=== PATIENT | male | born 1950 | race African-American/Black ===

== ENCOUNTER 2019-08-16 08:59 | Emergency (ER) | payer OTHER ==
--- NOTE | 2019-08-16 09:46 | ER Document Report ---
ED Medical Screen (RME) - General Chief Complaint: Hip Pain Stated Complaint: RIGHT HIP PAIN Time Seen by Provider: 08/16/19 09:40 Notes: HPI: 68-year-old male with multiple medical conditions presenting for right sided pain that seems to radiate from just below the shoulder blade down through the right flank, into the right hip down to the knee. Pain seems to be worse with standing or movement. Denies trauma. Denies abdominal pain dysuria fever nausea vomiting. I have greeted and performed a rapid initial assessment of this patient. A comprehensive ED assessment and evaluation of the patient, analysis of test results and completion of the medical decision making process will be conducted by additional ED providers PHYSICAL EXAMINATION: GENERAL: Well-appearing, well-nourished and in mild acute distress. HEAD: Atraumatic, normocephalic. EYES: sclera anicteric, conjunctiva are normal. ENT: Moist mucous membranes. NECK: Normal range of motion LUNGS: Normal work of breathing, clear to auscultation HEART: 2+ radial pulses bilaterally, regular rate and rhythm ABD: limited by positioning for exam in triage. Unable to reproduce pain through the right abdomen on palpation EXTREMITIES: no pitting or edema. No cyanosis. Unable to specifically reproduce pain on palpation of the right thoracic musculature, right lumbar musculature NEUROLOGICAL: No focal neurological deficits. Moves all extremities spontaneously and on command. PSYCH: Normal mood, normal affect. SKIN: Warm, Dry, normal turgor, no rashes or lesions noted. TRAVEL OUTSIDE OF THE [place] IN LAST 30 DAYS: No - Related Data Allergies/Adverse Reactions: No Known Allergies Allergy (Verified 08/16/19 09:35) Home Medications: metformin. januvia. famotidine. levocetirizine. vitamin d2. famotidine. pravastatin. glipizide. pataday Past Medical History - Social History Chew tobacco use (# tins/day): No Frequency of alcohol use: None Drug Abuse: None Physical Exam - Vital signs Vitals: Temp Pulse Resp BP Pulse Ox 98.0 F 59 L 18 144/73 H 94 08/16/19 09:04 08/16/19 09:04 08/16/19 09:04 08/16/19 09:04 08/16/19 09:04 Course - Vital Signs Vital signs: Temp Pulse Resp BP Pulse Ox 98.0 F 59 L 18 144/73 H 94 08/16/19 09:04 08/16/19 09:04 08/16/19 09:04 08/16/19 09:04 08/16/19 09:04
[2019-08-16 10:02] LABS: ABSOLUTE EOSINOPHILS # (AUTO) 0.1 10^3/uL (0.0-0.6); ABSOLUTE LYMPHOCYTES (AUTO) 0.9 10^3/uL (0.5-4.7); ABSOLUTE MONOCYTES (AUTO) 0.5 10^3/uL (0.1-1.4); ABSOLUTE NEUT (AUTO) 2.4 10^3/uL (1.7-8.2); BASOPHILS % (AUTO) 0.6 % (0-2); EOSINOPHILS % (AUTO) 3.4 % (0-6); HEMATOCRIT 39.7 % (37.9-51.0); HEMOGLOBIN 13.9 g/dL (13.5-17.0); LYMPHOCYTES % (AUTO) 23.3 % (13-45); MEAN CORPUSCULAR HEMOGLOBIN 31.7 pg (27.0-33.4); MEAN CORPUSCULAR VOLUME 91 fl (80-97); MONOCYTES % (AUTO) 12.9 % (3-13); PLATELET COUNT 181 10^3/uL (150-450); RED BLOOD COUNT 4.39 10^6/uL (4.35-5.55); SEGMENTED NEUTROPHILS % (AUTO) 59.8 % (42-78); TOTAL CELLS COUNTED % (AUTO) 100 %
--- NOTE | 2019-08-16 10:14 | RADIOLOGY REPORT (SQ) ---
EXAM DESCRIPTION: ABDOMEN 2 VIEWS COMPLETED DATE/TIME: 08/16/2019 10:05 am REASON FOR STUDY: right flank pain COMPARISON: None. NUMBER OF VIEWS: Two views. TECHNIQUE: Supine and erect/decubitus radiographic images of the abdomen acquired. LIMITATIONS: None. FINDINGS: FREE AIR: None. No abnormal gas collections. LUNG BASES: Clear. BOWEL GAS PATTERN: Nonobstructive pattern. No dilated loops or air fluid levels. CALCIFICATIONS: No suspicious calcifications. SOFT TISSUES: No gross mass or suggestion of organomegaly. HARDWARE: None in the abdomen. BONES: No acute fracture. No worrisome bone lesions. OTHER: No other significant finding. IMPRESSION: NO RADIOGRAPHIC EVIDENCE FOR ACUTE ABDOMINAL DISEASE. TECHNICAL DOCUMENTATION: JOB ID: [id number] 2010 [employer]- All Rights Reserved Reading location - IP/workstation name: [email or web address]
--- NOTE | 2019-08-16 10:15 | RADIOLOGY REPORT (SQ) ---
EXAM DESCRIPTION: HIP RIGHT AP/LATERAL COMPLETED DATE/TIME: 08/16/2019 10:05 am REASON FOR STUDY: right flank/hip pain COMPARISON: None. NUMBER OF VIEWS: Two views. TECHNIQUE: AP pelvis and additional frog-leg view of the right hip. LIMITATIONS: None. FINDINGS: MINERALIZATION: Normal. RIGHT HIP: No fracture or dislocation. No worrisome bone lesions. No contour deformity. Mild joint space narrowing. Sclerosis and osteophytes. LEFT HIP: No fracture or dislocation. No worrisome bone lesions. Mild joint space narrowing. Scler osis and osteophytes. PUBIS AND ISCHIUM: No fracture. PELVIS: No fracture. SACRUM: No fracture or dislocation. No worrisome bone lesions. LOWER LUMBAR SPINE: No fracture or dislocation. No worrisome bone lesions. No significant disc disea se. SOFT TISSUES: No findings. OTHER: No other significant finding. IMPRESSION: DEGENERATIVE CHANGES IN THE HIPS. NO ACUTE FINDINGS. TECHNICAL DOCUMENTATION: JOB ID: [id number] 2010 [employer]- All Rights Reserved Reading location - IP/workstation name: [email or web address]
[2019-08-16 10:26] LABS: ALBUMIN 3.7 g/dL (3.5-5.0); ALKALINE PHOSPHATASE 73 U/L (38-126); ANION GAP 7 (5-19); ASPARTATE AMINO TRANSFERASE 27 U/L (17-59); BILIRUBIN,DIRECT 0.2 mg/dL (0.0-0.4); BILIRUBIN,TOTAL 0.9 mg/dL (0.2-1.3); BLOOD UREA NITROGEN 23 mg/dL (7-20); CALCIUM 9.6 mg/dL (8.4-10.2); CARBON DIOXIDE 30 mmol/L (22-30); CHLORIDE 103 mmol/L (98-107); GLUCOSE 188 mg/dL (75-110); POTASSIUM 4.3 mmol/L (3.6-5.0); TOTAL PROTEIN 6.9 g/dL (6.3-8.2)
[2019-08-16 10:49] LABS: APPEARANCE,URINE CLEAR; BILIRUBIN,URINE NEGATIVE (NEGATIVE); COLOR,URINE YELLOW; GLUCOSE, URINE 50 mg/dL (NEGATIVE); KETONES,URINE NEGATIVE (NEGATIVE); LEUKOCYTE ESTERASE,URINE NEGATIVE (NEGATIVE); NITRITE,URINE NEGATIVE (NEGATIVE); PROTEIN,URINE >=500 mg/dL (NEGATIVE); URINE SPECIFIC GRAVITY 1.017; UROBILINOGEN,URINE NEGATIVE mg/dL (<2.0)
--- NOTE | 2019-08-16 12:49 | ER Document Report ---
ED General - General Chief Complaint: Hip Pain Stated Complaint: RIGHT HIP PAIN Time Seen by Provider: 08/16/19 09:40 TRAVEL OUTSIDE OF THE [place] IN LAST 30 DAYS: No - HPI Notes: 68-year-old male with longstanding history of chronic arthritic symptoms related to osteoarthritis and gout presents today with widespread joint pain most bothersome in his right hip at this time. No trauma. Patient says he is not had any medicines take for his gout in several months. He is a type II diabetic on oral agents. - Related Data Allergies/Adverse Reactions: No Known Allergies Allergy (Verified 08/16/19 09:35) Home Medications: metformin. januvia. famotidine. levocetirizine. vitamin d2. famotidine. pravastatin. glipizide. pataday Past Medical History - General Information source: Patient - Social History Smoking Status: Unknown if Ever Smoked Chew tobacco use (# tins/day): No Frequency of alcohol use: None Drug Abuse: None Family History: Reviewed & Not Pertinent Patient has suicidal ideation: No Patient has homicidal ideation: No - Past Medical History Cardiac Medical History: Reports: Hx Hypercholesterolemia, Hx Hypertension Endocrine Medical History: Reports: Hx Diabetes Mellitus Type 2 GI Medical History: Reports: Hx Gastroesophageal Reflux Disease Past Surgical History: Reports: Hx Appendectomy Review of Systems - Review of Systems Notes: Constitutional: Negative for fever. HENT: Negative for sore throat. Eyes: Negative for visual changes. Cardiovascular: Negative for chest pain. Respiratory: Negative for shortness of breath. Gastrointestinal: Negative for abdominal pain, vomiting or diarrhea. Genitourinary: Negative for dysuria. Musculoskeletal: As per HPI. Skin: Negative for rash. Neurological: Negative for headaches, weakness or numbness. 10 point ROS negative except as marked above and in HPI. Physical Exam - Vital signs Vitals: Temp Pulse Resp BP Pulse Ox 98.0 F 59 L 18 144/73 H 94 08/16/19 09:04 08/16/19 09:04 08/16/19 09:04 08/16/19 09:04 08/16/19 09:04 - Notes Notes: GENERAL: Elderly man appearing in no acute distress. SKIN: Good turgor no rashes. HEAD: Normocephalic atraumatic. EYES: PERRLA. EOMI. Conjunctivae and sclerae clear. EARS: CANALS AND TMS CLEAR. NOSE: CLEAR. MOUTH: Moist mucosa. Good dentition. No stridor or edema. No drooling. NECK: Supple. No masses or thyromegaly. No adenopathy. Carotids 2+ without bruits. No JVD. BACK: Symmetrical without tenderness. CHEST: Respirations unlabored. Breath sounds clear and symmetrical. HEART: Regular rhythm. No murmur gallop or rub. ABDOMEN: Soft nontender without masses, organomegaly or rebound. Bowel sounds normally active. No bruits. GENITALIA: Deferred. EXTREMITIES: Crepitus of both knees. No effusions. Decreased range of motion of right hip secondary to pain. No acute redness or warmth of any of the joints appreciated at this time. No edema. No calf tenderness. Cap refill less than 1.5 seconds. Dorsalis pedis and posterior tibial pulses 3+ and symmetrical. NEUROLOGICAL: GCS 15. Alert and oriented x3. Normal gait. Fluent speech. Cranial nerves II through XII intact. Sensorimotor and cerebellar normal. N ormal tone. PSYCHIATRIC: Appropriate affect. Course - Vital Signs Vital signs: Temp Pulse Resp BP Pulse Ox 98.0 F 59 L 18 144/73 H 94 08/16/19 09:04 08/16/19 09:04 08/16/19 09:04 08/16/19 09:04 08/16/19 09:04 - Laboratory Result Diagrams: 08/16/19 09:51 08/16/19 09:51 Laboratory results interpreted by me: 08/16/19 08/16/19 09:51 10:20 BUN 23 H Creatinine 1.67 H Est GFR ( Amer) 50 L Est GFR (MDRD) Non-Af 41 L Glucose 188 H Urine Protein >=500 H Urine Glucose (UA) 50 H Urine Blood SMALL H - Diagnostic Test Radiology reviewed: Reports reviewed Radiology results interpreted by me: 08/16/19 12:45 Per radiologist there are degenerative changes of right hip. Discharge - Discharge Clinical Impression: Chronic gouty arthritis Osteoarthritis Qualifiers: Osteoarthritis location: unspecified site Osteoarthritis type: unspecified Qualified Code(s): M19.90 - Unspecified osteoarthritis, unspecified site Condition: Stable Disposition: HOME, SELF-CARE Additional Instructions: Osteoarthritis Your symptoms are due to osteoarthritis. Osteoarthritis is inflammation caused by "wear and tear" of the joints. There is no cure for osteoarthritis, but medicine can help the pain and stiffness. It's important to keep the joints moving. Move the joints through their full range daily. Light exercise helps, but if exercise hurts, switch to a non-impact exercise like swimming. Local warmth may help ease pain. Call or return if any joint becomes severely swollen or increasingly painful, or if you have fever or spreading redness. Gout You have been diagnosed as having gout. Gout is a problem caused by an excess of uric acid, a natural chemical found in the body. The cause of this disease is unknown. Gout arthritis occurs when crystals of uric acid form in the joints. The big toe is the most common joint involved, but any joint can become affected. Persons with gout may also form uric acid kidney stones, resulting in flank pain and blood in the urine. Nodules of uric acid may form under the skin. The first step of treatment is to decrease the inflammation in the joint with antiinflammatory medication. Medication to lower the uric acid level in the blood may then be prescribed. This medication should be taken regularly, as any sudden change in dosage may provoke an attack of gout. Some foods, such as red meat, can provoke an attack in some gout sufferers. Call the doctor if new symptoms arise, or if you do not improve. Take prescribed medication as instructed. Return here as needed for new or worsening symptoms. Follow-up with your primary care doctor within the next week. Prescriptions: Colchicine [Gloperba] 0.6 mg PO BID 10 Days solution Naproxen 500 mg PO BID PRN 7 Days #14 tablet PRN Reason:
[2019-08-16 14:31] VITALS: BP 153/77
== END 2019-08-16 14:33 | disposition home or self-care (01) ==
LOC: ER 08:59
DX: M10.9 Gout, unspecified (principal); M19.90 Unspecified osteoarthritis, unspecified site; M25.551 Pain in right hip; M23.8X2 Other internal derangements of left knee; M23.8X1 Other internal derangements of right knee; K21.9 Gastro-esophageal reflux disease without esophagitis; I10 Essential (primary) hypertension; E78.00 Pure hypercholesterolemia, unspecified; E11.9 Type 2 diabetes mellitus without complications; Z79.84 Long term (current) use of oral hypoglycemic drugs; Z79.899 Other long term (current) drug therapy
CPT/HCPCS: 36415; 74019; 80053; 81001; 85025; 99283